=== PATIENT | male | born 1995 | race Caucasian/White ===

== ENCOUNTER 2021-03-26 12:45 | Emergency (ER) | payer MEDICAID ==
[~2021-03-26] VITALS: Ht 172.7 cm; Wt 81.8 kg
[2021-03-26] MEDS ORDERED: IBUPROFEN 600 MG TABLET PO ONE (13:30)
[2021-03-26 15:33] VITALS: BP 142/84
== END 2021-03-26 15:40 | disposition home or self-care (01) ==
LOC: EMS 12:50
DX: S90.512A Abrasion, left ankle, initial encounter (principal); S90.812A Abrasion, left foot, initial encounter; F17.210 Nicotine dependence, cigarettes, uncomplicated; X58.XXXA Exposure to other specified factors, initial encounter; Y93.89 Activity, other specified; Y92.89 Other specified places as the place of occurrence of the external cause; Y99.8 Other external cause status
CPT/HCPCS: 96361; 99284